=== PATIENT | male | born 1950 | race Caucasian/White ===

== ENCOUNTER 2018-03-01 15:13 | Inpatient (IN) | payer MEDICAID ==
[~2018-03-01] VITALS: Ht 190.5 cm; Wt 91.6 kg
--- NOTE | ~2018-03-01 | OP ---
PATIENT NAME: TYE DUGGAN MEDICAL RECORD: [id number] :48 LOCATION:[id number] ADMISSION DATE:03/01/18 SURGEON: SUJATA LEIGH MD DATE OF OPERATION: 03/01/2018 PREOPERATIVE DIAGNOSIS: Intertrochanteric hip fracture of the left hip. POSTOPERATIVE DIAGNOSIS: Intertrochanteric hip fracture of the left hip. PROCEDURE: Cephalomedullary nailing of the left hip, that is gamma nail. SURGEON: Sujata Leigh MD ANESTHESIA: General. INTRAOPERATIVE COMPLICATIONS: None. SUMMARY OF PATHOLOGIC FINDINGS: The patient's fracture reduced nicely under traction and fluoroscopy. OPERATIVE SUMMARY IN DETAIL: After obtaining the appropriate preoperative orthopedic surgery consents as well as anesthetic consultation, evaluation, and clearance, the patient was brought to the operating suite. He was then given general anesthesia in his hospital bed and then moved to the fracture table. Left leg was placed in the traction boot. Right leg was placed in the well leg figueroa. The patient was firmly secured to the fracture table using the seatbelt system along with a sheet. Fluoroscopy was brought. Under direct fluoroscopic imaging, the hip was reduced. The hip was prepped and draped in routine sterile fashion. Incision was made proximal to the tip of the greater trochanter. Awl was used to create an opening through which a ball-tipped guidewire was placed, followed by reaming. The short gamma nail was then put in place with little degree of difficulty, and the guide pin was directed into the center-center position of the femoral head. Appropriate reaming was then followed by placement of the compression screw. Derotational screw was applied and backed off 2-1/2 turns and then the fracture was compressed. Distal locking screw was placed using the distal interlocking guide under fluoroscopy. Final radiographs were taken and submitted for radiologist's review. Wound was irrigated and closed in the usual fashion. Sterile dressings were applied. The patient was awakened and taken to recovery room in stable condition. All final needle and sponge counts were correct. TRANSINT:[id number] Voice Confirmation ID: [id number] DOCUMENT ID: [id number] SUJATA LEIGH MD at 1342 CC: [id number] DICTATION DATE: 03/06/182238 RETIREMENT MANAGER: 03/07/18 0852 DIS IN 03/04/18 [facility] [address] [facility] [place] [address]
[2018-03-01 16:40] LABS: BASOPHILS 0.1 % (0-2); EOSINOPHILS 0.8 % (0-7); HEMATOCRIT 37.4 % (42.0-54.0); HEMOGLOBIN 12.7 g/dL (13.5-17.5); IMMATURE GRANULOCYTES 0.3 % (0-5); MCH 30.8 pg (26.0-34.0); MCV 90.8 fL (80.0-100.0); MEAN PLATELET VOLUME 8.8 fL (7.4-10.4); MONOCYTES 9.3 % (2-11); NEUTROPHILS 58.5 % (40-80); PLATELET COUNT 408 10x3/uL (130-400); RBC 4.12 10x6/uL (4.20-6.10); RDW 14.1 % (11.5-14.5); WBC 7.9 10x3/uL (4.8-10.8)
[2018-03-01 16:54] LABS: ALBUMIN 3.1 g/dL (3.4-5.0); ALKALINE PHOSPHATASE 189 U/L (46-116); ALT (SGPT) 22 U/L (10-68); BILIRUBIN - TOTAL 0.61 mg/dL (0.2-1.3); CALC OSMOLALITY 272 mosm/kg (275-300); CALCIUM 8.5 mg/dL (8.5-10.1); CARBON DIOXIDE 29.4 mmol/L (21.0-32.0); CHLORIDE - SERUM 95 mmol/L (98-107); CREATININE - SERUM 0.8 mg/dL (0.6-1.3); GLUCOSE 175 mg/dL (74-106); POTASSIUM - SERUM 3.4 mmol/L (3.5-5.1); PROTEIN - SERUM 7.1 g/dL (6.4-8.2); SODIUM 133 mmol/L (136-145); UREA NITROGEN 22 mg/dL (7-18); eGFR NON AFRICAN AMERICAN > 90 mL/min (90-120)
[2018-03-01 17:05] LABS: INR 1.02 (0.85-1.17)
[2018-03-01 20:00] VITALS: BP 138/92
[2018-03-01] MEDS ORDERED: MICONAZOLE NITR28 GM TOPICAL (23:14)
[2018-03-01] MEDS ORDERED: ARICEPT5 MG PO (23:15)
[2018-03-01] MEDS ORDERED: K-TAB10 MEQ PO (23:17)
[2018-03-01] MEDS ORDERED: FLOMAX0.4 MG PO (23:17)
[2018-03-01] MEDS ORDERED: PRINIVIL10 MG PO (23:18)
[2018-03-01] MEDS ORDERED: HYDROCHLOROTHIA25 MG PO (23:19)
[2018-03-01] MEDS ORDERED: COLACE100 MG PO (23:20)
[2018-03-01] MEDS ORDERED: FORTAMET1000 MG/BO PO (23:22)
[2018-03-01 23:28] LABS: APPEARANCE CLEAR (CLEAR); BILIRUBIN NEGATIVE (NEGATIVE); COLOR YELLOW (YELLOW); GLUCOSE 1000 mg/dL (NEGATIVE); KETONE NEGATIVE (NEGATIVE); NITRITE NEGATIVE (NEGATIVE); PROTEIN NEGATIVE (NEGATIVE)
[2018-03-02] VITALS (8 sets, daily range): BP systolic 105–146; BP diastolic 60–93; Ht 190.5 cm; Wt 91.6 kg
[2018-03-02 05:14] LABS: BASOPHILS 0.2 % (0-2); EOSINOPHILS 1.5 % (0-7); HEMATOCRIT 32.5 % (42.0-54.0); HEMOGLOBIN 11.1 g/dL (13.5-17.5); IMMATURE GRANULOCYTES 0.2 % (0-5); LYMPHOCYTES 29.6 % (15-50); MCH 30.6 pg (26.0-34.0); MCHC 34.2 g/dL (31.0-37.0); MCV 89.5 fL (80.0-100.0); MEAN PLATELET VOLUME 8.8 fL (7.4-10.4); NEUTROPHILS 58.5 % (40-80); PLATELET COUNT 387 10x3/uL (130-400); RBC 3.63 10x6/uL (4.20-6.10); RDW 14.3 % (11.5-14.5); WBC 6.5 10x3/uL (4.8-10.8)
[2018-03-02 05:26] LABS: CALC OSMOLALITY 273 mosm/kg (275-300); CALCIUM 8.2 mg/dL (8.5-10.1); CARBON DIOXIDE 29.4 mmol/L (21.0-32.0); CHLORIDE - SERUM 98 mmol/L (98-107); CREATININE - SERUM 0.6 mg/dL (0.6-1.3); GLUCOSE 174 mg/dL (74-106); SODIUM 134 mmol/L (136-145); UREA NITROGEN 18 mg/dL (7-18); eGFR NON AFRICAN AMERICAN > 90 mL/min (90-120)
[2018-03-03 00:49] VITALS: BP 162/96
[2018-03-03 04:49] VITALS: BP 138/89
[2018-03-03 06:39] LABS: HEMATOCRIT 31.1 % (42.0-54.0); HEMOGLOBIN 10.5 g/dL (13.5-17.5); MCH 30.1 pg (26.0-34.0); MCHC 33.8 g/dL (31.0-37.0); MCV 89.1 fL (80.0-100.0); MEAN PLATELET VOLUME 8.9 fL (7.4-10.4); RBC 3.49 10x6/uL (4.20-6.10); RDW 14.2 % (11.5-14.5)
[2018-03-03 06:47] LABS: WBC 9.7 10x3/uL (4.8-10.8)
[2018-03-03 12:10] VITALS: BP 133/81
[2018-03-03 15:54] VITALS: BP 134/77
[2018-03-03 20:00] VITALS: BP 132/80
[2018-03-04] VITALS: BP 139/84
[2018-03-04 04:00] VITALS: BP 129/79
[2018-03-04 04:32] LABS: HEMOGLOBIN 10.7 g/dL (13.5-17.5); MCH 30.9 pg (26.0-34.0); MCHC 34.5 g/dL (31.0-37.0); MCV 89.6 fL (80.0-100.0); MEAN PLATELET VOLUME 8.7 fL (7.4-10.4); RBC 3.46 10x6/uL (4.20-6.10); RDW 14.5 % (11.5-14.5); WBC 7.7 10x3/uL (4.8-10.8)
[2018-03-04 07:44] VITALS: BP 137/81
[2018-03-04] MEDS ORDERED: ELIQUIS2.5 MG PO (08:10)
[2018-03-04] MEDS ORDERED: ULTRAM50 MG PO (08:11)
== END 2018-03-04 12:18 | disposition home or self-care (01) | DRG 482 ==
LOC: D.ER 15:13 → D.EDHOLD 17:03 → D.MS 17:03
PROVIDERS: Emergency Medicine; Orthopaedic Surgery
PROC: 0QH736Z Insertion of Intramedullary Internal Fixation Device into Left Upper Femur, Percutaneous Approach (ICD-10-PCS; principal; 2018-03-02 16:00)
DX: S72.142A Displaced intertrochanteric fracture of left femur, initial encounter for closed fracture (principal); W19.XXXA Unspecified fall, initial encounter; I10 Essential (primary) hypertension; E11.9 Type 2 diabetes mellitus without complications; F03.90 Unspecified dementia, unspecified severity, without behavioral disturbance, psychotic disturbance, mood disturbance, and anxiety; Z99.3 Dependence on wheelchair